=== PATIENT | male | born 1985 ===

== ENCOUNTER 2024-02-11 09:05 | Outpatient (CLI) | payer OTHER ==
--- NOTE | 2024-02-11 13:33 | MRI Report ---
PROCEDURE: Knee LT WO INDICATIONS: KNEE PAIN TECHNIQUE: Noncontrast sagittal PD fast spin echo and T2 fast spin echo with fat saturation, sagittal 3-D gradie nt sequence with fat saturation; coronal T1 spin echo and PD fast spin echo with fat saturation, and axial PD fast spin echo with fat saturation through the knee. COMPARISON: None. FINDINGS: Image quality: Diagnostic Menisci Medial: Small horizontal tear of the body and posterior horn of the medial meniscus periphery Lateral: Mild internal degenerative signal abnormality without significant tear. There may be minimal peripheral fraying Cruciate ligaments: Intact Medial structures MCL: Intact Pes anserine tendons: Intact Semimembranosus: Mild insertional tendinopathy Lateral structures LCL: Intact Biceps femoris: Intact IT band: Intact Popliteus tendon: Intact Anterior structures Extensor mechanism: Moderate partial tear and tendinopathy at the patellar origin. Mild insertional t endinopathy at the quadriceps insertion. Fat pads: Mild edema adjacent to the patella tendon in Hoffa's fat pad Medial retinaculum: Intact. Trochlea: Slightly shallow. Mild edema is seen in the superolateral corner of Hoffa's fat pad Bone and joint Bones: No fracture, dislocation, or suspicious edema Cartilage: No significant defect. Mild heterogeneity is seen in all 3 compartments Joint space: No significant effusion Leal's cyst: None Soft tissues: No significant vascular or other soft tissue pathology. IMPRESSION: Moderate partial tear and tendinopathy of the patellar tendon origin. Mild quadriceps insertional ten dinopathy. Mild adjacent edema in the superolateral corner of Hoffa's fat pad, sometimes also seen with maltrack ing. Tiny horizontal tear of the medial meniscus, possibly degenerative. Mild semimembranosus insertional tendinopathy. Reviewed by: Cesar Verduzco MD on 02/11/2024 1:32 PM PDT Approved by: Cesar Verduzco MD on 02/11/2024 1:32 PM PDT Station ID: [id number]
== END 2024-02-11 09:06 | disposition home or self-care (01) ==
LOC: DI 09:05
PROVIDERS: ATTEND Family Medicine
DX: S76.112A Strain of left quadriceps muscle, fascia and tendon, initial encounter (principal); S83.242A Other tear of medial meniscus, current injury, left knee, initial encounter; M67.962 Unspecified disorder of synovium and tendon, left lower leg